=== PATIENT | female | born 1955 | race Caucasian/White ===

== ENCOUNTER 2020-11-21 17:04 | Inpatient (IN) ==
[2020-11-28] MEDS ORDERED: TRIAMCINOLONE ACETONIDE TP PRN (23:59)
[2020-11-28] MEDS ORDERED: Ondansetron ODT 4 MG TAB.RAPDIS PO PRN (23:59)
[2020-11-28] MEDS ORDERED: Ondansetron ODT 4 MG TAB.RAPDIS SL PRN (23:59)
[2020-11-28] MEDS ORDERED: Budesonide/Formoterol 160/4.5 1 PUFF INH IH PRN (23:59)
[2020-11-28] MEDS ORDERED: *HR* OxyCODONE/APAP 10/325 TABLET PO PRN (23:59)
[2020-11-29 06:13] LABS: Basophils # 0.1 K/mcL (0.0-0.2); Basophils % 0.8 %; Eosinophils # 0.3 K/mcL (0.0-0.6); Eosinophils % 3.6 %; Hematocrit 37.1 % (35.3-44.9); Hemoglobin 11.6 g/dL (11.5-15.4); Immature Granulocytes % 0.5 % (0-4); Lymphocytes # 1.2 K/mcL (0.6-4.6); Lymphocytes % 13.2 %; Mean Corpuscular HGB Conc 31.3 g/dL (31.6-35.5); Mean Corpuscular Hemoglobin 29.6 pg (28.0-33.3); Mean Corpuscular Volume 94.6 fL (83.0-100.0); Mean Platelet Volume 10.9 fL (9.4-12.4); Monocytes # 0.7 K/mcL (0.0-1.3); Monocytes % 8.1 %; Neutrophils # 6.7 K/mcL (1.6-8.9); Platelet Count 372 K/mcL (140-400); Red Blood Count 3.92 M/mcL (3.82-4.97); Red Cell Distribution Width 14.1 % (11.5-14.5); Segmented Neutrophils % 73.8 %; White Blood Count 9.1 K/mcL (4.3-11.1)
[2020-11-29] MEDS: *HR* Enoxaparin 40 MG/0.4 ML SYRINGE SQ SCH (06:23)
[2020-11-29 06:40] LABS: Potassium 3.3 mEq/L (3.5-5.1)
[2020-11-29] MEDS: DilTIAZem CD (24hr) 180 MG CAP.ER.24H PO SCH (08:14)
[2020-11-29] MEDS: predniSONE 20 MG TABLET PO SCH (08:14)
[2020-11-29] MEDS: PARoxetine 20 MG TABLET PO SCH ×2 (08:14→19:42)
[2020-11-30] MEDS: *HR* Enoxaparin 40 MG/0.4 ML SYRINGE SQ SCH (05:03)
[2020-11-30] MEDS: DilTIAZem CD (24hr) 180 MG CAP.ER.24H PO SCH (09:06)
[2020-11-30] MEDS: predniSONE 20 MG TABLET PO SCH (09:07)
[2020-11-30] MEDS: PARoxetine 20 MG TABLET PO SCH ×2 (09:08→20:04)
[2020-12-01] MEDS: *HR* Enoxaparin 40 MG/0.4 ML SYRINGE SQ SCH (05:11)
[2020-12-01] MEDS: predniSONE 20 MG TABLET PO SCH (08:33)
[2020-12-01] MEDS: PARoxetine 20 MG TABLET PO SCH ×2 (08:34→20:19)
[2020-12-01] MEDS: DilTIAZem CD (24hr) 180 MG CAP.ER.24H PO SCH (08:34)
[2020-12-01] MEDS ORDERED: *HR* OxyCODONE/APAP 5/325 TABLET PO PRN (17:39)
[2020-12-01] MEDS: *HR* OxyCODONE/APAP 5/325 TABLET PO PRN (20:23)
[2020-12-02] MEDS: *HR* Enoxaparin 40 MG/0.4 ML SYRINGE SQ SCH (05:24)
[2020-12-02] MEDS: DilTIAZem CD (24hr) 180 MG CAP.ER.24H PO SCH (09:01)
[2020-12-02] MEDS: predniSONE 20 MG TABLET PO SCH (09:02)
[2020-12-02] MEDS: PARoxetine 20 MG TABLET PO SCH ×2 (09:02→20:35)
[2020-12-02] MEDS: *HR* OxyCODONE/APAP 5/325 TABLET PO PRN (09:08)
[2020-12-02 19:55] LABS: Adenovirus Not Detected (Not Detect); Bordetella Pertussis Not Detected (Not Detect); Chlamydophila pneumoniae Not Detected (Not Detect); Coronavirus 229E Not Detected (Not Detect); Coronavirus HKU1 Not Detected (Not Detect); Coronavirus NL63 Not Detected (Not Detect); Coronavirus OC43 Not Detected (Not Detect); Human Metapneumovirus Not Detected (Not Detect); Human Rhinovirus/Enterovirus Not Detected (Not Detect); Influenza A Subtype 2009 H1 Not Detected (Not Detect); Influenza B Not Detected (Not Detect); Mycoplasma pneumoniae Not Detected (Not Detect); Parainfluenza Virus 1 Not Detected (Not Detect); Parainfluenza Virus 2 Not Detected (Not Detect); Parainfluenza Virus 3 Not Detected (Not Detect); Parainfluenza Virus 4 Not Detected (Not Detect); Respiratory Syncytial Virus Not Detected (Not Detect); SARS-CoV-2 Not Detected (Not Detect)
[2020-12-03] MEDS: *HR* Enoxaparin 40 MG/0.4 ML SYRINGE SQ SCH (05:24)
[2020-12-03 05:34] LABS: Hematocrit 36.3 % (35.3-44.9); Hemoglobin 11.5 g/dL (11.5-15.4); Mean Corpuscular HGB Conc 31.7 g/dL (31.6-35.5); Mean Corpuscular Volume 94.8 fL (83.0-100.0); Mean Platelet Volume 10.4 fL (9.4-12.4); Platelet Count 383 K/mcL (140-400); Red Blood Count 3.83 M/mcL (3.82-4.97); Red Cell Distribution Width 14.1 % (11.5-14.5); White Blood Count 9.3 K/mcL (4.3-11.1)
[2020-12-03 05:49] LABS: Albumin 3.4 g/dL (3.5-5.7); Albumin/Globulin Ratio 0.9 (1.1-2.2); Bilirubin,Total 0.5 mg/dL (0.3-1.0); Calcium 9.1 mg/dL (8.6-10.3); Globulin 3.6 g/dL (2.4-3.5); Magnesium 1.8 mg/dL (1.6-2.6); Potassium 3.6 mEq/L (3.5-5.1)
[2020-12-03] MEDS: PARoxetine 20 MG TABLET PO SCH ×2 (08:13→23:05)
[2020-12-03] MEDS: DilTIAZem CD (24hr) 180 MG CAP.ER.24H PO SCH (08:14)
[2020-12-03] MEDS: predniSONE 10 MG TABLET PO SCH (08:16)
[2020-12-03] MEDS: *HR* OxyCODONE/APAP 5/325 TABLET PO PRN (16:21)
[2020-12-04] MEDS: *HR* Enoxaparin 40 MG/0.4 ML SYRINGE SQ SCH (05:56)
[2020-12-04] MEDS: DilTIAZem CD (24hr) 180 MG CAP.ER.24H PO SCH (08:24)
[2020-12-04] MEDS: PARoxetine 20 MG TABLET PO SCH ×2 (08:24→21:36)
[2020-12-04] MEDS: predniSONE 10 MG TABLET PO SCH (08:26)
[2020-12-04] MEDS: *HR* OxyCODONE/APAP 5/325 TABLET PO PRN ×2 (08:28→21:36)
[2020-12-05] MEDS: *HR* Enoxaparin 40 MG/0.4 ML SYRINGE SQ SCH (06:34)
[2020-12-05 08:44] VITALS: BP 125/78
[2020-12-05] MEDS: PARoxetine 20 MG TABLET PO SCH (09:08)
[2020-12-05] MEDS: DilTIAZem CD (24hr) 180 MG CAP.ER.24H PO SCH (09:09)
[2020-12-05] MEDS: predniSONE 10 MG TABLET PO SCH (09:09)
[2020-12-05] MEDS: *HR* OxyCODONE/APAP 5/325 TABLET PO PRN (09:19)
[2020-12-06] MEDS ORDERED: predniSONE 5 MG TABLET PO SCH (09:00)
== END 2020-12-05 14:00 | disposition home health service (06) | DRG 560 ==
LOC: INPGRE 11-28 20:02
PROVIDERS: ADMIT Family Medicine; ATTEND Family Medicine